=== PATIENT | female | born 1965 | race Caucasian/White ===

== ENCOUNTER 2021-02-20 08:56 | Day surgery (SDC) | payer BC ==
[2021-02-18 17:36] VITALS: BMI 45.4
--- NOTE | 2021-02-19 17:31 | P.HPOB ---
History of Present Illness H&P Date: 02/19/21 Chief Complaint: Uterine mass Patient is a 55-year-old female with a 7 placenta near uterine mass on CAT scan. The recognition from radiology was direct visualization possible biopsy. She is scheduled for D&C with hysteroscopy and a Pap smear was done at that time. Risks/benefits/alternatives to this to this procedure were reviewed with the patient in detail but and all questions were answered for her prior to proceeding to the operative room. She is summary who continues to have periods and has not gone through menopause and up until last several months she had regular cycles. Past Medical History Past Medical History: GERD/Reflux, Hypertension, Osteoarthritis (OA), Sleep Apnea/CPAP/BIPAP Additional Past Medical History / Comment(s): C PAP MACHINE History of Any Multi-Drug Resistant Organisms: None Reported Past Surgical History: Cholecystectomy Additional Past Surgical History / Comment(s): EGD Past Anesthesia/Blood Transfusion Reactions: No Reported Reaction, Postoperative Nausea & Vomiting (PONV) Smoking Status: Former smoker - Past Family History Father Family Medical History: Cancer Mother Family Medical History: Cancer Additional Family Medical History / Comment(s): BREAST CANCER Medications and Allergies Home Medications Medication Instructions Recorded Confirmed Type Aspirin EC [Ecotrin Low Dose] 81 mg PO DAILY 02/18/21 02/18/21 History Cholecalciferol [Vitamin D3 (25 25 mcg PO DAILY 02/18/21 02/18/21 History Mcg = 1000 Iu)] Ferrous Sulfate [Iron] 45 mg PO DAILY 02/18/21 02/18/21 History RABEprazole SODIUM 20 mg PO DAILY 02/18/21 02/18/21 History Turmeric Root Extract [Turmeric] 500 mg PO DAILY 02/18/21 02/18/21 History Valsartan/Hydrochlorothiazide 1 each PO DAILY 02/18/21 02/18/21 History [Valsartan-Hctz 320-25 mg Tab] Zinc 50 mg PO DAILY 02/18/21 02/18/21 History Allergies Allergy/AdvReac Type Severity Reaction Status Date / Time levofloxacin [From Levaquin] Allergy Rash/Hives Verified 02/18/21 16:58 Exam Osteopathic Statement: *. No significant issues noted on an osteopathic structural exam other than those noted in the History and Physical/Consult. - OBG Physical Exam Breast: both: normal (no masses) Abdomen: Morbid obesity which limits the pelvic exam. Abdomen: bowel sounds normal, no diffuse tenderness, no bruit present, no guarding noted, no hepatomegaly, no splenomegaly, no mass Vulva: both: normal Vagina: normal moisture, no discharge Cervix: no lesion, no discharge Uterus: normal size, normal contour Adnexa: both: normal Anus/Rectum: normal perianal skin, no rectal mass, no hemorrhoids, heme negative
[~2021-02-20 08:56] MED LIST: DEXAMETHASONE SOD PHOSPHATE 4 MG/ML 1 ML VIAL IV ONE; HYDROmorphone 0.5 MG/0.5 ML SYRINGE IVP PRN; LACTATED RINGERS 1,000 ML IV SCH; LIDOCAINE 1% (10MG/ML) FOR IV START INTRADERMA PRN; MIDAZOLAM 2 MG/2 ML VIAL IV PRN; ONDANSETRON 4 MG/2 ML VIAL IVP ONE; Pre Op ABX Message 1 EACH MISC MISCELLANE ONE
[2021-02-20] MEDS ORDERED: SCOPOLAMINE 1.5MG/72HR PATCH TRANSDERM ONE (09:36)
[2021-02-20] MEDS ORDERED: PHENYLEPHRINE-0.9% NACL SYG 1,000 MCG/10 ML SYRINGE ONE (10:25)
[2021-02-20] MEDS ORDERED: MIDAZOLAM 2 MG/2 ML VIAL ONE (10:25)
[2021-02-20] MEDS ORDERED: LIDOCAINE 1% INJ 10MG/ML (20 ML MDV) ONE (10:25)
[2021-02-20] MEDS ORDERED: SUCCINYLCHOLINE CHLORIDE VIAL 200 MG/10 ML VIAL IV ONE (10:25)
[2021-02-20] MEDS ORDERED: PROPOFOL 10 MG/ML 20 ML VIAL IV ONE (10:25)
[2021-02-20] MEDS ORDERED: .fentaNYL (PF) 50 MCG/ML 2 ML AMP ONE (10:25)
--- NOTE | 2021-02-20 11:18 | P.OP ---
Date of Procedure: 02/20/21 Preoperative Diagnosis: Postmenopausal bleeding with uterine mass by CT Postoperative Diagnosis: Postmenopausal bleeding no mass visualized Procedure(s) Performed: D&C with hysteroscopy Anesthesia: ADRIANA Surgeon: Jerry Randhawa Estimated Blood Loss (ml): 5 IV fluids (ml): 400 Pathology: other (Uterine curettings) Condition: stable Disposition: same day Operative Findings: No masses visualized on hysteroscopy. Suspect what CAT scan thought was in the lining of uterus is actually in the muscle the uterus representing a suspected fibroid uterus. Very thin lining otherwise minimal tissue obtained with D&C Description of Procedure: Patient was taken to the operating suite where a general anesthetic was found be adequate. She was prepped and draped in the normal sterile fashion and placed in dorsal lithotomy position. Initially a speculum was inserted in vagina and the anterior lip source identified grasped with an ASCUS clamp and the cervix was dilated. Uterus was then sounded to 10 cm. Camera was then inserted. No masses noted. Suspect what was thought was a uterine mass in the lining was actually in the muscle layer. I was able to identify what I believe for both tubal ostia. Although the tubal ostia on the right side had somewhat limited visualization. There was no second cervix and no evidence of a septum inserted no didelphic or other possible abnormal uterine shape is noted. Once camera was placed with seeing no masses camera was removed and sharp curettings of the endometrium were obtained. All this tissues collected placed on Telfa sent to pathology for evaluation. Once this was completed instruments removed. At this point I did do a very thorough bimanual exam with noted grossly enlarged uterus firm very consistent with what I would expect for reduced feel like I cannot feel or identify a second foreign or any other obvious abnormalities we will plan to obtain an ultrasound following the recovery and decide if more treatment or observation is warranted. Surgery was completed all instruments were removed and patient was taken to the recovery room in stable and satisfactory condition. Plan - Discharge Summary Discharge Rx Participant: Yes New Discharge Prescriptions: New Ibuprofen [Motrin] 600 mg PO Q6HR PRN #30 tab PRN Reason: Pain No Action Ferrous Sulfate [Iron] 45 mg PO DAILY Cholecalciferol [Vitamin D3 (25 Mcg = 1000 Iu)] 25 mcg PO DAILY RABEprazole SODIUM 20 mg PO DAILY Turmeric Root Extract [Turmeric] 500 mg PO DAILY Aspirin EC [Ecotrin Low Dose] 81 mg PO DAILY Valsartan/Hydrochlorothiazide [Valsartan-Hctz 320-25 mg Tab] 1 each PO DAILY Zinc 50 mg PO DAILY Discharge Medication List Aspirin EC [Ecotrin Low Dose] 81 mg PO DAILY 02/18/21 [History] Cholecalciferol [Vitamin D3 (25 Mcg = 1000 Iu)] 25 mcg PO DAILY 02/18/21 [History] Ferrous Sulfate [Iron] 45 mg PO DAILY 02/18/21 [History] RABEprazole SODIUM 20 mg PO DAILY 02/18/21 [History] Turmeric Root Extract [Turmeric] 500 mg PO DAILY 02/18/21 [History] Valsartan/Hydrochlorothiazide [Valsartan-Hctz 320-25 mg Tab] 1 each PO DAILY 02/18/21 [History] Zinc 50 mg PO DAILY 02/18/21 [History] Ibuprofen [Motrin] 600 mg PO Q6HR PRN #30 tab 02/20/21 [Rx] Follow up Appointment(s)/Referral(s): Jerry Randhawa DO [Doctor of Osteopathic Medicine] - 1 Week Patient Instructions/Handouts: *Surgery [facility] - Scopalamine Patch Instructions Activity/Diet/Wound Care/Special Instructions: No heavy lifting, limit stairs and driving, and pelvic rest. If any high temperatures, heavy bleeding, or severe pain call my office Discharge Disposition: HOME SELF-CARE
[2021-02-20 11:22] VITALS: TEMP 97.9
[2021-02-20 12:29] VITALS: BP 123/79; PULSE 63; RESP 14
== END 2021-02-20 13:06 | disposition home or self-care (01) ==
LOC: OR 08:56
PROVIDERS: ATTEND Obstetrics & Gynecology
DX: R22.9 Localized swelling, mass and lump, unspecified (principal); I10 Essential (primary) hypertension; K21.9 Gastro-esophageal reflux disease without esophagitis; M19.90 Unspecified osteoarthritis, unspecified site; G47.33 Obstructive sleep apnea (adult) (pediatric); Z87.891 Personal history of nicotine dependence; Z80.9 Family history of malignant neoplasm, unspecified; Z79.82 Long term (current) use of aspirin; Z79.899 Other long term (current) drug therapy; Z88.1 Allergy status to other antibiotic agents
CPT/HCPCS: 88305; 84132; 58558; J2250; J0330; J1100; J2405; J2001; J3010; J2370; J2704; J1170

== ENCOUNTER → 2024-01-06 | Outpatient (CLI) | payer OTHER ==
--- NOTE | 2024-01-06 18:33 | XR ---
EXAMINATION TYPE: XR knee complete RT DATE OF EXAM: 01/06/2024 COMPARISON: None HISTORY: Right lateral knee pain tripped and twisted TECHNIQUE: 3 view right knee FINDINGS: There is narrowing of the medial compartment joint space. Medial and lateral tibial plateau and femoral condylar spurring is present. No acute fractures or dislocations evident. No joint effus ion is evident. Follow up exams can be performed 7-10 days from acute trauma for continued pain. IMPRESSION: 1. No acute osseous abnormality right knee. 2. Moderate degenerative changes medial compartment right knee [facility], Workstation: [email or web address], 01/06/2024 6:31 PM
--- NOTE | 2024-01-06 18:34 | XR ---
EXAMINATION TYPE: XR lumbar spine 2 or 3V DATE OF EXAM: 01/06/2024 COMPARISON: None HISTORY: Tripped and twisted right knee, low back pain right lower back pain TECHNIQUE: 3 view lumbar spine FINDINGS: There 5 lumbar-type vertebral bodies. Pedicles are intact. Scoliosis is present with the co nvexity to the left. There is narrowing of disc height L4-5 and L5-S1. Vertebral body heights are pre served. No spondylolisthesis is evident. IMPRESSION: 1. Scoliosis lower lumbar spine. 2. Degenerative disc changes L4-5 and L5-S1 [facility], Workstation: [facility], 01/06/2024 6:32 PM
== END | disposition home or self-care (01) ==
LOC: RADXRMAIN 17:13
PROVIDERS: ATTEND Emergency Medicine
CPT/HCPCS: 72100